=== PATIENT | female | born 1985 | race Caucasian/White ===

== ENCOUNTER → 2023-02-02 11:26 | Outpatient (BNVA) | payer BC, SELFPAY | PROVIDERS: PCP Physician Assistant; Visit Provider Internal Medicine | DX: R53.83 Other fatigue (principal); R79.89 Other specified abnormal findings of blood chemistry; E61.1 Iron deficiency; E11.10 Type 2 diabetes mellitus with ketoacidosis without coma; R31.9 Hematuria, unspecified; M54.50 Low back pain, unspecified; M25.569 Pain in unspecified knee | CPT/HCPCS: 36415; 72100; 73560; 80053; 81003; 82533; 82550; 82607; 82784; 83516; 83735; 84100; 84425; 84439; 84443; 85025; 85651; 86140; 86160; 86162; 86200; 86235; 86255; 86376; 86431; 86618; 86666; 86704; 86757; 86803; 87340 ==